=== PATIENT | female | born 1945 | race Hispanic/Latino ===

== ENCOUNTER 2017-12-10 12:59 | Emergency (ER) | payer OTHER ==
[~2017-12-10 12:59] MED LIST: EZET10 PO; LEVO50TA11 PO; LISI40TA4 PO; PRAV40TA3 PO; TRAZ-147 PO; VENL-63 PO
[2017-12-10] MEDS ORDERED: HYDRALAZINE HCL 20 MG/ML VIAL ONE (13:36)
[2017-12-10] MEDS ORDERED: METOCLOPRAMIDE 10 MG TABLET ONE (13:37)
[2017-12-10 13:41] LABS: BASOPHILS % (AUTO) 0.4 % (0.0-5.0); EOSINOPHILS % (AUTO) 1.6 % (0.0-8.0); HEMATOCRIT 42.5 % (36-48); LYMPHOCYTES % (AUTO) 41.2 % (21.0-51.0); MEAN CORPUSCULAR HEMOGLOBIN 31.2 pg (27.0-33.0); MEAN CORPUSCULAR HGB CONC 34.5 g/dL (32.0-36.0); MEAN CORPUSCULAR VOLUME 90.7 fL (79-99); MONOCYTES % (AUTO) 8.9 % (3.0-13.0); NEUTROPHILS % (AUTO) 47.9 % (40.0-77.0); PLATELET COUNT (AUTO) 210 K/uL (130-400); RED BLOOD CELL COUNT(AUTO) 4.68 MIL/uL (4.00-5.50); RED CELL DISTRIBUTION WIDTH 13.4 % (11.0-15.5); WHITE BLOOD COUNT (AUTO) 7.9 K/uL (4.8-10.8)
[2017-12-10 13:50] LABS: INR 0.94 (0.85-1.15); PARTIAL THROMBOPLASTIN TIME 27.5 SEC (26.3-35.5); PROTHROMBIN TIME 9.9 SEC (9.6-11.6)
[2017-12-10 14:01] LABS: CARBON DIOXIDE 26 mmol/L (21-32); CHLORIDE 107 mmol/L (101-111); CREATININE 0.8 mg/dL (0.5-1.5); GLOMERULAR FILTR. RATE CALC 75 mL/min (>60); GLUCOSE,RANDOM 111 mg/dL (70-105); POTASSIUM 4.1 mmol/L (3.5-5.1); SODIUM SERUM 143 mmol/L (136-145); UREA NITROGEN, BLOOD 11 mg/dL (7-18)
[2017-12-10 14:15] LABS: ALANINE AMINOTRANSFERASE 47 U/L (12-78); ALBUMIN 3.9 g/dL (3.5-5.0); ASPARTATE AMINOTRANSFERASE 28 U/L (10-37); BILIRUBIN,TOTAL 0.3 mg/dL (0.2-1.0); CREATINE KINASE MB < 0.5 ng/mL (0.5-3.6); CREATINE KINASE, TOTAL 52 U/L (21-232); MYOGLOBIN 30 ng/mL (10-92); TOTAL PROTEIN, SERUM 7.7 g/dL (6.0-8.3)
== END 2017-12-10 16:29 | disposition home or self-care (01) ==
LOC: EDH 12:59
DX: I10 Essential (primary) hypertension (principal); R51 Headache; F41.9 Anxiety disorder, unspecified; E78.5 Hyperlipidemia, unspecified; E07.9 Disorder of thyroid, unspecified
CPT/HCPCS: 36415; 70450; 80053; 82550; 82553; 83874; 84484; 85025; 85610; 85730; 93005; 94761; 96365; 96366; 99285; J0360

== ENCOUNTER → 2019-12-02 | Outpatient (CLI) | payer OTHER ==
[~2019-12-02] MED LIST changes: -EZET10 PO; +EZET10TA13 PO; -TRAZ-147 PO; +TRAZ-187 PO
== END | disposition home or self-care (01) ==
LOC: SHCH 10:47
PROVIDERS: ATTEND Internal Medicine Cardiovascular Disease
DX: I10 Essential (primary) hypertension (principal); R07.9 Chest pain, unspecified
CPT/HCPCS: 93306

== ENCOUNTER → 2019-12-12 | Outpatient (CLI) | payer OTHER ==
[~2019-12-12] MED LIST changes: +REGADENOSON 0.4 MG/5 ML PF SYG IVP SCH
== END | disposition home or self-care (01) ==
LOC: SHCH 08:11
PROVIDERS: ATTEND Internal Medicine Cardiovascular Disease
DX: I10 Essential (primary) hypertension (principal); R07.9 Chest pain, unspecified
CPT/HCPCS: 78452; 93017; 96374; A9500 ×2; J2785

== ENCOUNTER 2021-02-03 11:19 | Emergency (ER) | payer OTHER ==
[~2021-02-03 11:19] MED LIST changes: -LISI40TA4 PO; +LISI40TA9 PO; -REGADENOSON 0.4 MG/5 ML PF SYG IVP SCH
[2021-02-03 12:27] LABS: APPEARANCE,URINE Clear (CLEAR); BILIRUBIN,URINE Negative (NEGATIVE); COLOR,URINE Yellow (YELLOW); GLUCOSE, URINE (UA) Negative (NEGATIVE); KETONES,URINE Negative (NEGATIVE); LEUKOCYTE ESTERASE ,URINE Moderate (NEGATIVE); NITRATE,URINE Negative (NEGATIVE); OCCULT BLOOD,URINE Trace (NEGATIVE); PROTEIN,URINE Negative (NEGATIVE); UROBILINOGEN,URINE 0.2 mg/dL (0.2-1.0)
[2021-02-03] MEDS ORDERED: CEFTRIAXONE SODIUM 1 GM ONE (12:58)
[2021-02-03] MEDS ORDERED: MECLIZINE HCL 25 MG TABLET ONE (12:58)
[2021-02-03] MEDS ORDERED: SODIUM CHLORIDE 0.9% 1000ML 1,000 ML IV ONE (12:59)
[2021-02-03 13:00] LABS: BASOPHILS % (AUTO) 0.4 % (0.0-5.0); EOSINOPHILS % (AUTO) 2.2 % (0.0-8.0); HEMATOCRIT 37.7 % (36-48); LYMPHOCYTES % (AUTO) 36.8 % (21.0-51.0); MEAN CORPUSCULAR HEMOGLOBIN 29.4 pg (27.0-33.0); MEAN CORPUSCULAR HGB CONC 33.7 g/dL (32.0-36.0); MEAN CORPUSCULAR VOLUME 87.3 fL (79-99); MONOCYTES % (AUTO) 8.8 % (3.0-13.0); NEUTROPHILS % (AUTO) 51.7 % (40.0-77.0); PLATELET COUNT (AUTO) 153 K/uL (130-400); RED BLOOD CELL COUNT(AUTO) 4.32 MIL/uL (4.00-5.50); RED CELL DISTRIBUTION WIDTH 13.6 % (11.0-15.5); WHITE BLOOD COUNT (AUTO) 6.7 K/uL (4.8-10.8)
[2021-02-03 13:12] LABS: CREATININE 0.8 mg/dL (0.5-1.5); POTASSIUM 4.2 mmol/L (3.5-5.1)
[2021-02-03] MEDS ORDERED: ONDANSETRON HCL 4 MG/2 ML VIAL ONE (13:12)
[2021-02-03 13:17] LABS: ALBUMIN 3.7 g/dL (3.5-5.0); BILIRUBIN,TOTAL 0.2 mg/dL (0.2-1.0); TOTAL PROTEIN, SERUM 7.2 g/dL (6.0-8.3)
[2021-02-03 13:23] LABS: BACTERIA,URINE Many /HPF (None Seen); SQUAMOUS EPITHELIAL CELL,UR Moderate /HPF (0-2)
== END 2021-02-03 15:03 | disposition home or self-care (01) ==
LOC: EDH 11:19
DX: N39.0 Urinary tract infection, site not specified (principal); R42 Dizziness and giddiness; F41.9 Anxiety disorder, unspecified; E78.5 Hyperlipidemia, unspecified; I10 Essential (primary) hypertension; E07.9 Disorder of thyroid, unspecified
CPT/HCPCS: 36415; 70450; 80053; 81001; 84484; 85025; 87077; 87088; 87186; 96365; 96366; 96375; 99284; J0696; J2405; J7030

== ENCOUNTER 2022-11-26 11:42 | Emergency (ER) | payer OTHER ==
[~2022-11-26] VITALS: Ht 152.4 cm; Wt 76.2 kg
[2022-11-26 13:11] LABS: BASOPHILS % (AUTO) 0.5 % (0.0-5.0); EOSINOPHILS % (AUTO) 1.1 % (0.0-8.0); LYMPHOCYTES % (AUTO) 30.9 % (21.0-51.0); MEAN CORPUSCULAR HGB CONC 33.6 g/dL (32.0-36.0); MEAN CORPUSCULAR VOLUME 89.2 fL (79-99); MONOCYTES % (AUTO) 9.2 % (3.0-13.0); NEUTROPHILS % (AUTO) 58.1 % (40.0-77.0); PLATELET COUNT (AUTO) 148 K/uL (130-400); RED BLOOD CELL COUNT(AUTO) 4.37 MIL/uL (4.00-5.50); RED CELL DISTRIBUTION WIDTH 13.6 % (11.0-15.5); WHITE BLOOD COUNT (AUTO) 5.7 K/uL (4.8-10.8)
[2022-11-26 13:27] LABS: CREATININE 0.6 mg/dL (0.5-1.5)
[2022-11-26 13:36] LABS: ALBUMIN 3.5 g/dL (3.5-5.0); TOTAL PROTEIN, SERUM 6.9 g/dL (6.0-8.3)
[2022-11-26 14:15] LABS: APPEARANCE,URINE CLEAR (CLEAR); BILIRUBIN,URINE NEGATIVE (NEGATIVE); COLOR,URINE COLORLESS (YELLOW); GLUCOSE, URINE (UA) NEGATIVE (NEGATIVE); KETONES,URINE NEGATIVE (NEGATIVE); LEUKOCYTE ESTERASE ,URINE NEGATIVE Leu/uL (NEGATIVE); NITRATE,URINE NEGATIVE (NEGATIVE); PH,URINE 7.5 (5.0-8.0); PROTEIN,URINE NEGATIVE (NEGATIVE); UROBILINOGEN,URINE 0.2 mg/dL (0.2-1.0)
[2022-11-26 14:23] LABS: BACTERIA,URINE RARE /HPF (None Seen); MUCUS,URINE RARE LPF (None Seen); RBC,URINE 0-1 /HPF (0-1); SQUAMOUS EPITHELIAL CELL,UR RARE /HPF (0-2)
[2022-11-26] MEDS ORDERED: AMOX500C2 PO (14:24)
[2022-11-26] MEDS ORDERED: CIPR7.5D OT (14:24)
[2022-11-26] MEDS ORDERED: 0.9%NACL 1000ML 1,000 ML IV ONE (14:30)
[2022-11-26 15:37] VITALS: BP 136/62
== END 2022-11-26 15:50 | disposition home or self-care (01) ==
LOC: EDH 11:42
DX: E86.0 Dehydration (principal); H72.92 Unspecified perforation of tympanic membrane, left ear; F41.9 Anxiety disorder, unspecified; I10 Essential (primary) hypertension; E03.9 Hypothyroidism, unspecified; Z20.822 Contact with and (suspected) exposure to COVID-19; Z79.899 Other long term (current) drug therapy
CPT/HCPCS: 99285; 96360; 71045; 87635; 96361; 84484; 80053; 85025; 87804 ×2; 81001; 36415; 93005; C9803; J7030

== ENCOUNTER 2024-04-14 23:27 | Emergency (ER) | payer OTHER ==
[~2024-04-14] VITALS: Ht 157.5 cm; Wt 78.9 kg
[~2024-04-14 23:27] MED LIST changes: +AMOX500C2 PO; +CIPR7.5D OT; -EZET10TA13 PO; +EZET10TA81 PO
[2024-04-14 23:55] LABS: BASOPHILS # (AUTO) 0.04 K/uL (0.00-0.20); BASOPHILS % (AUTO) 0.4 % (0.0-5.0); EOSINOPHILS # (AUTO) 0.11 K/uL (0.00-0.70); HEMATOCRIT 37.8 % (36-48); IMMATURE GRANULOCYTE ABSOLUTE 0.03 K/uL (0-1); LYMPHOCYTES # (AUTO) 3.9 K/uL (1.0-4.8); LYMPHOCYTES % (AUTO) 33.9 % (21.0-51.0); MEAN CORPUSCULAR HEMOGLOBIN 32.2 pg (27.0-33.0); MEAN CORPUSCULAR HGB CONC 35.2 g/dL (32.0-36.0); MEAN CORPUSCULAR VOLUME 91.5 fL (79-99); MONOCYTES # (AUTO) 0.8 K/uL (0.1-1.0); MONOCYTES % (AUTO) 6.6 % (3.0-13.0); NEUTROPHILS # (AUTO) 6.6 K/uL (1.8-7.7); NEUTROPHILS % (AUTO) 57.8 % (40.0-77.0); PLATELET COUNT (AUTO) 183 K/uL (130-400); RED BLOOD CELL COUNT(AUTO) 4.13 MIL/uL (4.00-5.50); RED CELL DISTRIBUTION WIDTH 13.3 % (11.0-15.5); WHITE BLOOD COUNT (AUTO) 11.4 K/uL (4.8-10.8)
[2024-04-14 23:59] LABS: APPEARANCE,URINE CLEAR (CLEAR); BILIRUBIN,URINE NEGATIVE (NEGATIVE); COLOR,URINE LIGHT-YELLOW (YELLOW); GLUCOSE, URINE (UA) NEGATIVE (NEGATIVE); KETONES,URINE NEGATIVE (NEGATIVE); LEUKOCYTE ESTERASE ,URINE NEGATIVE Leu/uL (NEGATIVE); NITRATE,URINE NEGATIVE (NEGATIVE); PH,URINE 5.5 (5.0-8.0); PROTEIN,URINE NEGATIVE (NEGATIVE); UROBILINOGEN,URINE 0.2 mg/dL (0.2-1.0)
[2024-04-15 00:02] LABS: CREATININE 0.8 mg/dL (0.5-1.0); POTASSIUM 3.2 mmol/L (3.5-5.1)
[2024-04-15 00:03] LABS: ADD UA MICROSCOPIC YES
[2024-04-15 00:05] LABS: BACTERIA,URINE RARE /HPF (None Seen); SQUAMOUS EPITHELIAL CELL,UR FEW /HPF (0-2)
[2024-04-15 00:07] LABS: ALBUMIN 3.8 g/dL (3.5-5.0); BILIRUBIN,TOTAL 0.2 mg/dL (0.2-1.0); INR 0.96 (0.85-1.15); PROTHROMBIN TIME 10.4 SEC (9.6-11.6); TOTAL PROTEIN, SERUM 7.2 g/dL (6.0-8.3)
[2024-04-15 00:08] LABS: PARTIAL THROMBOPLASTIN TIME 27.6 SEC (26.3-35.5)
[2024-04-15] MEDS: ONDANSETRON 4MG INJ IVP ONE (00:17)
[2024-04-15] MEDS: MORPHINE 2 MG SYG IVP ONE (00:19)
[2024-04-15] MEDS: ACETAMINOPHEN WITH CODEINE 1 TAB TAB PO ONE (02:42)
[2024-04-15] MEDS ORDERED: CEPH500B PO (02:42)
[2024-04-15] MEDS: CEFTRIAXONE 1G VIAL IVPB ONE (02:43)
[2024-04-15 03:30] VITALS: BP 146/59; PULSE 60; RESP 18; O2SAT 97
== END 2024-04-15 04:22 | disposition home or self-care (01) ==
LOC: EDH 23:27
DX: M54.50 Low back pain, unspecified (principal); F41.9 Anxiety disorder, unspecified; E11.9 Type 2 diabetes mellitus without complications; I10 Essential (primary) hypertension; Z79.890 Hormone replacement therapy; Z79.899 Other long term (current) drug therapy; Z90.710 Acquired absence of both cervix and uterus
CPT/HCPCS: 99285; 80053; 85025; 85610; 85730; 81001; 36415; 74176; 96365; 96375; J2270; J0696; J2405

== ENCOUNTER 2024-07-24 13:39 | Emergency (ER) | payer OTHER ==
[~2024-07-24] VITALS: Ht 154.9 cm; Wt 79.4 kg
[~2024-07-24 13:39] MED LIST changes: +CEPH500B PO
[2024-07-24] MEDS ORDERED: NEOM30OI18 TP (14:30)
[2024-07-24 15:50] VITALS: BP 121/61; PULSE 71; RESP 16; TEMP 98.6; O2SAT 97
== END 2024-07-24 16:00 | disposition home or self-care (01) ==
LOC: EDH 13:39
DX: L76.22 Postprocedural hemorrhage of skin and subcutaneous tissue following other procedure (principal); F41.9 Anxiety disorder, unspecified; E11.9 Type 2 diabetes mellitus without complications; I10 Essential (primary) hypertension; Z79.890 Hormone replacement therapy; Z79.899 Other long term (current) drug therapy; Z90.710 Acquired absence of both cervix and uterus
CPT/HCPCS: 99282

== ENCOUNTER 2024-12-31 22:23 | Observation (INO) | payer OTHER ==
[~2024-12-31] VITALS: Ht 160 cm; Wt 79.4 kg
[~2024-12-31 22:23] MED LIST changes: -AMOX500C2 PO; +ATOR40TA69 PO; +CARV6.25 PO; +CEFD300C3 PO; -CEPH500B PO; -CIPR7.5D OT; +DONE-53 PO; -EZET10TA81 PO; +LEVO100C4 PO; -LEVO50TA11 PO; -LISI40TA9 PO; +MELO-106 PO; -PRAV40TA3 PO; +TRAZ-185 PO; -TRAZ-187 PO; -VENL-63 PO; +VENL225T3 PO
[2024-12-31 23:06] LABS: HEMATOCRIT 36.2 % (36-48); MEAN CORPUSCULAR HEMOGLOBIN 30.5 pg (27.0-33.0); MEAN CORPUSCULAR HGB CONC 33.4 g/dL (32.0-36.0); MEAN CORPUSCULAR VOLUME 91.2 fL (79-99); RED BLOOD CELL COUNT(AUTO) 3.97 MIL/uL (4.00-5.50); WHITE BLOOD COUNT (AUTO) 7.4 K/uL (4.8-10.8)
[2024-12-31] MEDS: LORazepam 2 MG/ML 1 ML VIAL IVP ONE (23:08)
[2024-12-31 23:15] LABS: CREATININE 0.6 mg/dL (0.5-1.0); POTASSIUM 3.3 mmol/L (3.5-5.1)
--- NOTE | 2024-12-31 23:43 | ERN ---
ED Note History of Present Illness Stated Complaint: THROAT ISSUES Chief Complaint: Other Problems Time Seen by MD: 22:43 Dictation: This is a 79-year-old obese female who is brought to the emergency room with complaints of throat closing up and also confusion. The son who was at bedside stated that they went to the primary care physician today Dr. Brooks, and patient apparently told him that she was very emotional tearful feeling depressed and unable to sleep. He started her on venlafaxine and quetiapine. The son stated that she took her 1st dose tonight and started acting bizarre. During my evaluation patient was extremely confused disoriented and I am not able to communicate with her She apparently also complained of generalized body weakness to her son. No fever chills or rigors, no fall. No history of alcohol intake Temperature 98 pulse 74 respirations 16 blood pressure 187/76 with a pulse oximetry of 98% on room air Chronic medical problems include anxiety, diabetes mellitus, hypertension, hypothyroidism and history of vertigo Allergies: Coded Allergies: No Known Drug Allergies (Verified Allergy, Unknown, 01/07/15) Home Meds Active Scripts Cefdinir (Cefdinir) 300 Mg Capsule, 1 CAP PO BID for 7 Days, #14 CAP 0 Refills Prov:DON SANCHEZ 10/26/24 Reported Medications Carisoprodol (Carisoprodol) 350 Mg Tablet, 1 TAB PO BID PRN for muscle spasms for 30 Days, #90 TAB 0 Refills 01/01/25 Losartan/Hydrochlorothiazide (Losartan-Hctz 100-25 mg Tab) 100 Mg-25 Mg Tablet, 1 TAB PO DAILY for 30 Days, #30 TAB 0 Refills 01/01/25 Gabapentin (Gabapentin) 100 Mg Capsule, 300 MG PO TID, CAP 01/01/25 Atorvastatin Calcium (Atorvastatin Calcium) 40 Mg Tablet, 1 TAB PO HS for 30 Days, #30 TAB 0 Refills 01/01/25 Venlafaxine HCl (Venlafaxine HCl ER) 150 Mg Cap.er.24h, 150 MG PO BID, CAPSULE. 01/01/25 Quetiapine Fumarate (Quetiapine Fumarate) 50 Mg Tablet, 1 TAB PO HS for 30 Days, #30 TAB 0 Refills 01/01/25 Levothyroxine Sodium (Levothyroxine) 100 Mcg Capsule, 100 MCG PO ACBKFST, CAP 10/26/24 Meloxicam (Meloxicam) 7.5 Mg Tablet, 7.5 MG PO AD, TAB 10/25/24 Trazodone HCl (Trazodone HCl) 50 Mg Tablet, 1 TAB PO AD for 30 Days, #30 TAB 0 Refills 10/25/24 Donepezil HCl (Donepezil HCl) 10 Mg Tab.rapdis, 1 TAB PO DAILY for 30 Days, #30 TAB 0 Refills 10/25/24 Atorvastatin Calcium (LIPITOR) 40 Mg Tablet, 40 MG PO HS, TAB 10/25/24 Venlafaxine HCl (Venlafaxine HCl ER) 225 Mg Tab.er.24, 225 MG PO AM 10/25/24 Carvedilol (Carvedilol) 6.25 Mg Tablet, 1 TAB PO BID for 30 Days, #60 TAB 0 Refills 10/25/24 Past Medical History Past Medical History: Anxiety, Diabetes-Type II, Hypertension Additional Past Medical Hx: THYROID, VERTIGO Surgical History: Hysterectomy, Other Surgical History Other: ONE KIDNEY ( UNKNOWN WHICH ONE, ONE REMOVED DUE TO HYSTERECTOMY SX ) Family History: Negative Social History: Negative History: Not Applicable RN Note Reviewed/Agreed w/PFSH: Yes Review of System Dictation Constitutional: Negative for fever,chills, and weight loss Eyes: Negative for injury, pain,redness, and discharge ENT: Negative for injury,pain or swelling Cardiovascular: Negative for chest pain, palpitations, and edema Respiratory: Negative for shortness of breath, cough, and wheezing, Abdomen/GI: Negative for abdominal pain, nausea, vomiting, diarrhea, and constipation Back: Negative for injury and pain : Negative for injury, bleeding and discharge MS/Extremity: Negative for injury and deformity Skin: Negative for rash, and discoloration Neuro: Negative for headache, weakness, numbness, tingling, and seizure Psych: Negative for suicide ideation, homicidal ideation, and hallucinations As described in the history of present illness Initial Vital Sign VS Vital Signs Date Time Temp Pulse Resp B/P (MAP) Pulse Ox O2 Delivery O2 Flow Rate FiO2 12/31/24 22:24 98.1 74 16 187/76 98 Room Air 12/31/24 22:44 0 21 Physical Exam Dictation General: awake, alert, NAD obese female very confused and mumbling Head/Face: Normocephalic, atraumatic Eyes: PERRL, EOMI, vision at baseline ENT: oral cavity clear, TMs clear, no signs of infection Neck: Trachea midline, supple, no nuchal rigidity Cardiovascular: RRR, normal S1/S2, No MRGs, no JVD Respiratory: CTAB, no respiratory distress, No rales or wheezes Abdomen: Soft, non-tender, non-distended, normal bowel sounds, no guarding or rebound. Skin: Warm, dry, normal turgor, no rash MS/Extremity: Pulses equal, no cyanosis, neurovascular intact, FROM Neuro: Disoriented strength 5/5, CN 2-12 intact, normal cerebellar exam, Psych: Confused and appears generally anxious Extremities-trace edema without any palpable cords, Homans sign is negative Results (Laboratory/Radiology) Laboratory/Radiology Laboratory Tests Test 12/31/24 22:59 White Blood Count 7.4 K/uL (4.8-10.8) Red Blood Count 3.97 MIL/uL (4.00-5.50) L Hemoglobin 12.1 g/dL (12.0-16.0) Hematocrit 36.2 % (36-48) Mean Corpuscular Volume 91.2 fL (79-99) Mean Corpuscular Hemoglobin 30.5 pg (27.0-33.0) Mean Corpuscular Hemoglobin Concent 33.4 g/dL (32.0-36.0) Red Cell Distribution Width 13.0 % (11.0-15.5) Platelet Count 162 K/uL (130-400) Mean Platelet Volume 11.8 fL (7.5-10.5) H Nucleated Red Blood Cells 0.0 % (0.0-0.19) Sodium Level 131 mmol/L (136-145) L Potassium Level 3.3 mmol/L (3.5-5.1) L Chloride Level 96 mmol/L (101-111) L Carbon Dioxide Level 31 mmol/L (21-32) Blood Urea Nitrogen 13 mg/dL (7-18) Creatinine 0.6 mg/dL (0.5-1.0) Glomerular Filtration Rate Calc 92 mL/min (>90) Random Glucose 140 mg/dL (70-105) H Total Calcium 8.7 mg/dL (8.5-10.1) Thyroid Stimulating Hormone (TSH) 0.24 uIU/mL (0.36-3.74) #L Labs Reviewed?: Yes ED Course ED Course Orders Procedure Category Date Status Time Lorazepam 2 Mg PHA 12/31/24 Complete (Ativan) 23:00 Cbc Without LAB 12/31/24 Complete Differential 22:53 Basic Metabolic Panel LAB 12/31/24 Complete 22:53 Urinalysis Profile LAB 12/31/24 Logged 23:42 Ct Head/Brain W/O CT 12/31/24 Resulted Contrast 23:42 0.9% Nacl 500ml PHA 01/01/25 Complete Iv.Soln (Ns 500ml 00:00 Thyroid Stimulating LAB 12/31/24 Complete Hormone 23:54 Hydralazine 20mg Inj PHA 01/01/25 Complete (Apresoline 20mg In 02:30 Edm Admit Bridge Order ADM 01/01/25 Verified 02:36 Current Medications Medications (Trade) Dose Ordered Sig/Rod Route PRN Reason Start Time Stop Time Status Last Admin Dose Admin Hydralazine HCl (APRESOLine 20MG INJ) 10 mg ONCE ONCE IV 01/01/25 02:30 01/01/25 02:31 DC Lorazepam (AtiVAN) 0.5 mg ONCE ONCE IVP 12/31/24 23:00 12/31/24 23:01 DC 12/31/24 23:08 Sodium Chloride 500 ml @ 0 mls/hr ONCE ONCE IV 01/01/25 00:00 01/01/25 00:01 DC 12/31/24 23:48 Vital Signs Date Time Temp Pulse Resp B/P (MAP) Pulse Ox O2 Delivery O2 Flow Rate FiO2 12/31/24 22:44 98.4 69 19 196/88 98 Room Air* 0 21 12/31/24 22:24 98.1 74 16 187/76 98 Room Air We will perform diagnostic labs, advanced imaging and administer medications according to the patient's complaint. Once the results are available, will review and personally interpreted the labs to rule out any acute life- threatening emergency the trach require immediate intervention and treatment. I will then re-evaluate the patient after treatment and diagnostic exams have return to determine whether the patient requires any further testing, can safely be discharged home or need further admission to hospital for additional treatment and evaluation. Labs reviewed CBC shows a white count of 7.4 hemoglobin 12.1 platelets 162 BNP 7 is significant for a sodium of 131 potassium 3.3 chloride 96 bicarb 31 BUN and creatinine are 13 and 0.6 with a glucose of 140.. CT scan of the head has been requested which is pending at this time 1:53 a.m. patient just came back after the CT scan of the head. Preliminary from my review no acute intracranial abnormality radiology report is still pending at this time. I updated the patient's spouse and explained to him that most likely it was a medication side effect. Her blood pressure is uncontrolled we will monitor her overnight. 2:38 a.m. patient accepted by [facility] mid-level provider for [facility] for admission and monitoring Medical Decision Making MDM MDM: Differential diagnosis: Toxic metabolic encephalopathy medication side effects, low-grade sepsis, early dementia, psychosis related to depression Rationale: Tests considered and ordered secondary to shared decision making include: labs, ECG and radiology Previous outside records reviewed: Old ER visits. Risk of complication and/or morbidity or mortality of patient management: None Medications-Per medication reconciliation Need for hospitalization: Patient does meet criteria for hospitalization. Need for emergency major/minor surgery: No There are no social concerns with this patient. Prescription drug management Prescriptions will include symptomatic care Patient's prior external medical records from other ER visits were reviewed by me as indicated. Prior testing and results from previous visits were reviewed. Prior tests were taken into account with medical decision making and resource utilization, independent historian/historians were used to obtain complete medical history. I independently interpreted the test that were performed, results were reviewed by me and considered findings on radiology if ordered. Medical management and examination interpretation discussions were had by me with other qualified healthcare professionals as indicated for the patient's care. Problem List Problem List: (1) Altered mental status (2) Confusion (3) Diabetes mellitus (4) Uncontrolled hypertension (5) Hypothyroidism DX & DISP Disposition: Inpatient Departure Impression: Primary Impression: Altered mental status Additional Impressions: Confusion, Diabetes mellitus, Uncontrolled hypertension, Hypothyroidism Condition: Stable Additional Instructions: Patient was informed of all the diagnostic labs and procedures conducted in the emergency room today and demonstrated understanding of the results. I personal ly reviewed and interpreted all the diagnostic exams performed in the ER today. The patient will be admitted to the hospital for further treatment and evaluation. Disposition-admit to facility Condition-stable/guarded Course-uncertain at this time Pain status-decreased Assessment-exam unchanged Admission Certification- I certify that the patients status is appropriate and is based on my best clinical judgment and the patient's condition as documented in the medical records Referrals: OSCAR BROOKS MD (PCP) MARLENY HURD MD Dec 31, 2024 23:43
[2024-12-31] MEDS: 0.9% NACL 500ML IV.SOLN 500 ML IV ONE (23:48)
[2025-01-01] MEDS ORDERED: ATOR40TA71 PO (00:12)
[2025-01-01] MEDS ORDERED: [UNRECOGNIZED DRUG - CODE] PO (00:12)
[2025-01-01] MEDS ORDERED: QUET50TA24 PO (00:12)
[2025-01-01] MEDS ORDERED: GABA-529 PO (00:12)
[2025-01-01] MEDS ORDERED: LOSA1TAB54 PO (00:12)
[2025-01-01] MEDS ORDERED: VENL-63 PO (00:12)
--- NOTE | 2025-01-01 01:53 | HMCIMG ---
CT HEAD/BRAIN W/O CONTRAST HISTORY: Acute confusion COMPARISON: None TECHNIQUE: Multiple sequential axial images of the head were obtained from the base of the skull through vertex. Patient was not given contrast through intravenous route. FINDINGS: The ventricles and extraventricular CSF spaces are dilated consistent with cerebral atrophy. Nonspecific white matter changes seen. There is no midline shift, mass effect or herniation. No acute intracranial bleed is seen. Visualized portion of the paranasal sinuses are grossly within normal limits. IMPRESSION: 1. No acute intracranial bleed is seen. 2. Atrophy with white matter changes. CT was performed with one or more following dose reduction techniques: automated exposure control, adjustment of the mA and kv according to patient's size, or use of a iterative reconstruction technique.
[2025-01-01] MEDS: hydrALAZine 20MG/ML VIAL IV ONE (03:07)
[2025-01-01] MEDS ORDERED: HYDROcodone/APAP 5/325 1 TAB TABLET PO PRN ×2 (04:00)
[2025-01-01] MEDS ORDERED: acetaMINOPHEN 650 MG SUPPOSITORY RC PRN (04:00)
[2025-01-01] MEDS ORDERED: ondanSETRON 4MG INJ IVP PRN (04:00)
[2025-01-01] MEDS ORDERED: hydrALAZine 20MG/ML VIAL IV PRN (04:00)
[2025-01-01] MEDS ORDERED: acetaMINOPHEN 325 MG TAB PO PRN (04:00)
[2025-01-01] MEDS ORDERED: ALBUTEROL 0.083% 2.5 MG/3 ML INH IH PRN (04:00)
[2025-01-01] MEDS ORDERED: LAbetaLOL 20MG SYG IV PRN (04:00)
[2025-01-01 04:53] VITALS: PULSE 62; RESP 18; O2SAT 97
[2025-01-01 06:42] VITALS: PULSE 63; RESP 18; O2SAT 96
--- NOTE | 2025-01-01 07:30 | NUR ---
ASSUMED PATIENTS CARE.
--- NOTE | 2025-01-01 08:00 | NUR ---
HOME MEDICATIONS REVIEWED AND PLACED ON CHART. WAITING FOR PHYSICIAN TO RECONSILE MEDICATIONS.
--- NOTE | 2025-01-01 09:30 | NUR ---
OBTAINED URINE SAMPLE.
--- NOTE | 2025-01-01 10:00 | NUR ---
DISCUSSED PLAN OF CARE, HOME MEDICATIONS AND NEW CONSULT WITH PATIENTS DAUGHTER, SHE VERBALIZED UNDERSTANDING.
[2025-01-01] MEDS: ASCORBIC ACID 500 MG TAB PO SCH (10:06)
[2025-01-01] MEDS: FAMOTIDINE 20MG TAB PO SCH (10:06)
[2025-01-01 10:15] LABS: APPEARANCE,URINE CLEAR (CLEAR); BILIRUBIN,URINE NEGATIVE (NEGATIVE); COLOR,URINE COLORLESS (YELLOW); GLUCOSE, URINE (UA) NEGATIVE (NEGATIVE); KETONES,URINE NEGATIVE (NEGATIVE); LEUKOCYTE ESTERASE ,URINE NEGATIVE Leu/uL (NEGATIVE); NITRATE,URINE NEGATIVE (NEGATIVE); OCCULT BLOOD,URINE NEGATIVE (NEGATIVE); PH,URINE 5.5 (5.0-8.0); PROTEIN,URINE NEGATIVE (NEGATIVE); UROBILINOGEN,URINE 0.2 mg/dL (0.2-1.0)
[2025-01-01 10:27] LABS: ADD UA MICROSCOPIC NO
[2025-01-01 12:00] VITALS: BP 115/60; PULSE 73; RESP 14; TEMP 98.2; O2SAT 98
--- NOTE | 2025-01-01 12:55 | NUR ---
DCP: HOME met with pt and daughter Sophie Artis [phone] at bedside. Per daughter, pt had first appt with Dr Brooks who made changes to pt's anxiety and depression medication and added a new med. daughter reports that within 2 hrs of taking the medication pt started with altered mental status and sh brought to er. Daughter states pt is improving, but still not at pt's baseline. Daughter also reports that pt is in early stages of dementia. Pt lives with her [place] [phone]. Prior to event, pt was independent of ADLS, used no DME or in home care services. Pt uses [facility] for [facility]. Per daughter, pt will return home at [place]. Addendum: 01/01/25 at 1300 by PEMA MALDONADO SS Amended: Links added.
[2025-01-01] MEDS ORDERED: LEVO75CA5 PO (14:56)
[2025-01-01] MEDS ORDERED: VENL112. PO (14:56)
[2025-01-01] MEDS ORDERED: TRAZ-185 PO (14:56)
--- NOTE | 2025-01-01 15:17 | HP ---
[facility] HISTORY & PHYSICAL Date Patient Seen: Jan 01, 2025 Time of Visit: 15:00 Supervising Physician: KRISTAN BRAGG Primary Care Physician: MD MIRACLE Outpatient Specialists: [ ] Inpatient Consults: [ ] PROBLEM LIST: Acute Metabolic Encephalopathy/ Delirium secondary to Medication reaction.resolved HLD HTN Hypothyroidism CKD stage II Obesity BMI of 31 Hx of Nephrectomy Dementia , undergoing workup outpatient HPI: This is a case of a 79-year-old woman with a past medical history of dementia, generalized anxiety disorder,, hypothyroidism , hypertension that presented secondary to acute onset of confusion that according to daughter began 2 hours after taking a medication that was started by her primary care physician. The patient was started on quetipine and her venlafaxine dose was doubled. Of note she also takes trazodone at home and gabapentin 300 mg b.i.d.. Upon my evaluation the patient's return to baseline, she is awake, eating her lunch in good spirits. She is following commands. NIHSS score of 0. CT scan of the head was unremarkable. Urinalysis was negative for infection. Chemistry did reveal mild hyponatremia with a sodium of 131 and potassium of 3.3. TSH at 0.24. CBC unremarkable. Suspect hyponatremia is secondary to her SSRI use. She was kept for observation given her uncontrolled BP in setting of Delerium PAST MEDICAL HX: see above PAST SURGICAL HX: noncontributory SOCIAL HISTORY: No tobacco, ETOH, or illicit drug use Coded Allergies: No Known Drug Allergies (Verified Allergy, Unknown, 01/07/15) REVIEW OF SYSTEMS: 12 point ROS reviewed with patient. Pertinent positives mentioned above. Otherwise negative. PHYSICAL EXAM: GENERAL: alert, weak, awake oriented x 3 HEENT: EOMI, Sclera non icteric, moist mucosa NECK: Supple, no JVD, trachea midline LUNGS: Clear breath sounds bilaterally. No wheezes HEART: Regular rate and rhythm. Normal S1 and S2, without murmurs ABD: Abdomen soft, nontender. Bowel sounds present EXT: No clubbing cyanosis or edema NEURO: Alert and oriented to person, follows commands Vital Signs (last 8hr) Date Time Temp Pulse Resp B/P (MAP) Pulse Ox O2 Delivery O2 Flow Rate FiO2 01/01/25 12:00 98.2 73 14 115/60 98 Room Air* 0 21 01/01/25 07:55 98.1 65 15 139/66 0 Room Air* 0 21 LABS: Hematology Labs: Test 12/31/24 22:59 Range/Units White Blood Count 7.4 4.8-10.8 K/uL Red Blood Count 3.97 L 4.00-5.50 MIL/uL Hemoglobin 12.1 12.0-16.0 g/dL Hematocrit 36.2 36-48 % Mean Corpuscular Volume 91.2 79-99 fL Mean Corpuscular Hemoglobin 30.5 27.0-33.0 pg Mean Corpuscular Hemoglobin Concent 33.4 32.0-36.0 g/dL Red Cell Distribution Width 13.0 11.0-15.5 % Platelet Count 162 130-400 K/uL Mean Platelet Volume 11.8 H 7.5-10.5 fL Nucleated Red Blood Cells 0.0 0.0-0.19 % Chemistry Labs: Test 12/31/24 22:59 Range/Units Sodium Level 131 L 136-145 mmol/L Potassium Level 3.3 L 3.5-5.1 mmol/L Chloride Level 96 L 101-111 mmol/L Carbon Dioxide Level 31 21-32 mmol/L Blood Urea Nitrogen 13 7-18 mg/dL Creatinine 0.6 0.5-1.0 mg/dL Glomerular Filtration Rate Calc 92 >90 mL/min Random Glucose 140 H 70-105 mg/dL Total Calcium 8.7 8.5-10.1 mg/dL Thyroid Stimulating Hormone (TSH) 0.24 #L 0.36-3.74 uIU/mL DIAGNOSTICS / RADIOLOGY RESULTS: [ ] PLAN Patient was monitored overnight, blood pressure controlled Currently readings are at 139/66 to 115/60. Patient we will stop quetiapine. She will resume venlafaxine at 112.5 mg daily, trazodone 25 mg nightly as currently being taken for the next week. If no behavioral changes are noted and patient tolerates then at this point we recommend increasing her trazodone dose to 50 mg nightly for her insomnia. Patient was to be monitored for the next week and assess for any altered mental status and/or behavioral changes.. If not occur then the patient can resume her prior venlafaxine dose of 225. Daughter was given instructions and they were written on a note pad for her. We do recommend follow up with Neurology outpatient for her dementia workup. We a lso recommend that further medication adjustments be made by her neurologist only and not by several physicians to avoid polypharmacy. We also discussed possibility for [facility] facility should the family feel the patient's dementia has advanced and is a danger to herself. At this time the patient is calm, alert, oriented x3 and in good spirits. She was not a danger to herself or others. Daughter states that she has a director of security and her at home and not intersted in SNF facility service at this time. Code Status: Full Resuscitation Disposition: Home Other: Total patient care time exceeds 35 minutes excluding all procedures. DON SANCHEZ Jan 01, 2025 15:17
--- NOTE | 2025-01-01 15:18 | DS ---
[facility] DISCHARGE SUMMARY Date Patient Seen: Jan 01, 2025 Time of Visit: 15:18 Supervising Physician: KRISTAN BRAGG Primary Care Physician: MD MIRACLE Outpatient Specialists: [ ] Inpatient Consults: [ ] PROBLEM LIST: Acute Metabolic Encephalopathy/ Delirium secondary to Medication reaction.resolved HLD HTN Hypothyroidism CKD stage II Obesity BMI of 31 Hx of Nephrectomy Dementia , undergoing workup outpatient HOSPITAL COURSE: This is a case of a 79-year-old woman with a past medical history of dementia, generalized anxiety disorder,, hypothyroidism , hypertension that presented secondary to acute onset of confusion that according to daughter began 2 hours after taking a medication that was started by her primary care physician. The patient was started on quetipine and her venlafaxine dose was doubled. Of note she also takes trazodone at home and gabapentin 300 mg b.i.d.. Upon my evaluation the patient's return to baseline, she is awake, eating her lunch in good spirits. She is following commands. NIHSS score of 0. CT scan of the head was unremarkable. Urinalysis was negative for infection. Chemistry did reveal mild hyponatremia with a sodium of 131 and potassium of 3.3. TSH at 0.24. CBC unremarkable. Suspect hyponatremia is secondary to her SSRI use. She was kept for observation given her uncontrolled BP in setting of Delerium Patient was monitored overnight, blood pressure controlled Currently readings are at 139/66 to 115/60. Patient we will stop quetiapine. She will resume venlafaxine at 112.5 mg daily, trazodone 25 mg nightly as currently being taken for the next week. If no behavioral changes are noted and patient tolerates then at this point we recommend increasing her trazodone dose to 50 mg nightly for her insomnia. Patient was to be monitored for the next week and assess for any altered mental status and/or behavioral changes.. If not occur then the patient can resume her prior venlafaxine dose of 225. Daughter was given instructions and they were written on a note pad for her. We do recommend follow up with Neurology outpatient for her dementia workup. We also recommend that further medication adjustments be made by her neurologist only and not by several physicians to avoid polypharmacy. We also discussed possibility for half-way facility should the family feel the patient's dementia has advanced and is a danger to herself. At this time the patient is calm, alert, oriented x3 and in good spirits. She was not a danger to herself or others. Daughter states that she has a housing assistant and her at home and not intersted in SNF facility service at this time. Adjustments were also made to levothyroxine , dose decreased to 75mcg as it is too tightly controlled. All questions answered . New Medications: Levothyroxine Sodium (Levothyroxine) 75 Mcg Capsule 1 TAB PO DAILY for 30 Days, #30 CAP 0 Refills Trazodone HCl (Trazodone HCl) 50 Mg Tablet 0.5 TAB PO HS for 30 Days, #30 TAB 0 Refills Venlafaxine Besylate (Venlafaxine Besylate ER) 112.5 Mg Tab.er.24 112.5 MG PO DAILY, #30 30 Continued Medications: Atorvastatin Calcium (Lipitor) 40 Mg Tablet 40 MG PO HS, TAB Atorvastatin Calcium (Atorvastatin Calcium) 40 Mg Tablet 1 TAB PO HS for 30 Days, #30 TAB 0 Refills Carvedilol (Carvedilol) 6.25 Mg Tablet 1 TAB PO BID for 30 Days, #60 TAB 0 Refills Donepezil HCl (Donepezil HCl) 10 Mg Tab.rapdis 1 TAB PO DAILY for 30 Days, #30 TAB 0 Refills Gabapentin (Gabapentin) 100 Mg Capsule 300 MG PO TID, CAP Losartan/Hydrochlorothiazide (Losartan-Hctz 100-25 mg Tab) 100 Mg-25 Mg Tablet 1 TAB PO DAILY for 30 Days, #30 TAB 0 Refills Discontinued Medications: Levothyroxine Sodium (Levothyroxine) 100 Mcg Capsule 100 MCG PO ACBKFST, CAP Venlafaxine HCl (Venlafaxine HCl ER) 225 Mg Tab.er.24 225 MG PO AM PHYSICAL EXAM: GENERAL: alert, weak, awake oriented x 3 HEENT: EOMI, Sclera non icteric, moist mucosa NECK: Supple, no JVD, trachea midline LUNGS: Clear breath sounds bilaterally. No wheezes HEART: Regular rate and rhythm. Normal S1 and S2, without murmurs ABD: Abdomen soft, nontender. Bowel sounds present EXT: No clubbing cyanosis or edema NEURO: Alert and oriented to person, follows commands FOLLOW-UP: Follow-up with PCP in 2-3 days Follow up with Neurologist in 2 weeks RECOMMENDATIONS: See Discharge Instructions This case was seen and discussed with my supervising physician. More than 30 minutes spent on discharge process, including evaluation of the patient, discussion with nursing staff, medication reconciliation and follow-up appointments DON SANCHEZ Jan 01, 2025 15:18
[2025-01-01] MEDS ORDERED: atorVAStatin 40 MG TABLET PO SCH (21:00)
[2025-01-02] MEDS ORDERED: LOSARTAN/HYDROCHLOROTHIAZIDE 50-12.5MG TABLET PO SCH (09:00)
== END 2025-01-01 15:27 | disposition home or self-care (01) ==
LOC: EDH 22:23 → EDHIP 22:24 → UNDOADMOB 01-01 03:35 → EDHIP 01-01 03:35
PROVIDERS: ADMIT Internal Medicine Critical Care Medicine; ATTEND Internal Medicine Critical Care Medicine
DX: G93.41 Metabolic encephalopathy (principal); E78.5 Hyperlipidemia, unspecified; I12.9 Hypertensive chronic kidney disease with stage 1 through stage 4 chronic kidney disease, or unspecified chronic kidney disease; E11.22 Type 2 diabetes mellitus with diabetic chronic kidney disease; N18.2 Chronic kidney disease, stage 2 (mild); E03.9 Hypothyroidism, unspecified; E66.9 Obesity, unspecified; F03.90 Unspecified dementia, unspecified severity, without behavioral disturbance, psychotic disturbance, mood disturbance, and anxiety; R41.82 Altered mental status, unspecified; E87.1 Hypo-osmolality and hyponatremia; R29.700 NIHSS score 0; F41.1 Generalized anxiety disorder; Z90.710 Acquired absence of both cervix and uterus; Z79.899 Other long term (current) drug therapy; Z68.31 Body mass index [BMI] 31.0-31.9, adult; Z90.5 Acquired absence of kidney
CPT/HCPCS: 96374; 99285; 84443; 80048; 85027; 36415; 70450; 81003; 94664; J2060; G0378 ×12